=== PATIENT | male | born 1990 | race African-American/Black ===

== ENCOUNTER 2019-02-11 15:24 | Emergency (ER) | payer OTHER ==
[~2019-02-11] VITALS: Ht 172.7 cm; Wt 102.3 kg
[2019-02-11 15:36] VITALS: BP 134/90
[2019-02-11] MEDS ORDERED: TETanus/Pertussis (Acell)/Diphther VAC/PF (Tdap-Adult) 0.5ml syringe IM ONE (15:50)
[2019-02-11] MEDS ORDERED: LIDOcaine 1% w/epiNEPHrine 1:200,000 30ml vial IM ONE (15:50)
== END 2019-02-11 16:45 | disposition home or self-care (01) ==
LOC: EEVIPCON 15:25 → ER 15:25
DX: S01.511A Laceration without foreign body of lip, initial encounter (principal); W21.05XA Struck by basketball, initial encounter; Y93.67 Activity, basketball; Y92.89 Other specified places as the place of occurrence of the external cause; Y99.8 Other external cause status
CPT/HCPCS: 40650; 99284; J3490